=== PATIENT | male | born 1980 | race Caucasian/White ===

== ENCOUNTER 2018-02-05 13:44 | Outpatient (CLI) | payer OTHER | END 2018-02-05 13:45 | disposition home or self-care (01) | LOC: SC 13:44 | PROVIDERS: ATTEND Internal Medicine Pulmonary Disease | DX: G47.33 Obstructive sleep apnea (adult) (pediatric) (principal) | CPT/HCPCS: 99203; 99212 ==

== ENCOUNTER 2018-04-09 10:35 | Outpatient (CLI) | payer OTHER | END 2018-04-09 10:36 | disposition home or self-care (01) | LOC: SC 10:35 | PROVIDERS: ATTEND Nurse Practitioner Family | DX: G47.33 Obstructive sleep apnea (adult) (pediatric) (principal) | CPT/HCPCS: 99212; 99213 ==

== ENCOUNTER 2019-09-28 15:49 | Emergency (ER) | payer OTHER ==
[2019-09-28 15:57] VITALS: BP 137/93
[2019-09-28] MEDS ORDERED: PROPARACAINE 0.5% OPHTH DROPS 15 ML EACHEYE STA (16:02)
--- NOTE | 2019-09-28 16:28 | ED Physician Documentation ---
PD HPI OPHTHO - Stated complaint Stated Complaint: F/O RT EYE - Chief complaint Chief Complaint: Heent - History obtained from History obtained from: Patient, Family - History of Present Illness Timing - onset: Today Timing - duration: Minutes Timing - details: Abrupt onset, Still present Location: Right Quality / character: Throbbing, Sharp Associated symptoms: Redness, Tearing, FB sensation Contributing factors: Other (mowing) Similar symptoms before: Has not had sx before Recently seen: Not recently seen - Additional information Additional information: Previously well 38-year-old male was wearing his glasses and mowing the lawn he felt something get into his eye and now is not able to even hold his eye open he has severe pain and foreign body sensation in the eye not allowing him to open his own eye Review of Systems Constitutional: denies: Fever Eyes: reports: Irritation. denies: Decreased vision, Photophobia Ears: denies: Ear pain Nose: denies: Congestion Throat: denies: Sore throat Respiratory: denies: Cough GI: denies: Vomiting PD PAST MEDICAL HISTORY - Past Surgical History Past Surgical History: No - Present Medications Home Medications: Ambulatory Orders Medication Instructions Recorded Confirmed Loratadine [Claritin] 10 mg PO DAILY 03/20/14 03/20/14 Atorvastatin [Lipitor] 0 mg 09/28/19 Neomycin/Poly/Dex Ophth Drops 1 drops RIGHTEYE QID #1 bottle 09/28/19 [Maxitrol Ophth Drops] - Allergies Allergies/Adverse Reactions: Allergies Allergy/AdvReac Type Severity Reaction Status Date / Time No Known Drug Allergies Allergy Verified 09/28/19 15:57 - Social History Does the pt smoke?: No Smoking Status: Never smoker Does the pt drink ETOH?: Yes Does the pt have substance abuse?: No - Immunizations Immunizations are current?: Yes - POLST Patient has POLST: No PD ED PE NORMAL - Vitals Vital signs reviewed: Yes (hypertensive) - General General: Alert and oriented X 3, No acute distress, Well developed/nourished - HEENT HEENT: Atraumatic, PERRL, EOMI, Other (There is a brown corneal foreign body in the central cornea. 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, No motor deficit, No sensory deficit, Normal speech Eye Opening: Spontaneous Motor: Obeys Commands Verbal: Oriented GCS Score: 15 - Psych Psych: Normal mood, Normal affect Results - Vitals Vitals: Vital Signs - 24 hr 09/28/19 15:55 Temperature 36.7 C Heart Rate 96 Respiratory 18 Rate Blood Pressure 137/93 H O2 Saturation 99 Oxygen O2 Source Room air Procedures - FB removal FB location: Other (eye) FB removal preparation: Local anesthesia-specify (proparicaine) Removal method: Other (#27 needle) FB removal aftercare: No complications, Patient tolerated well, Removed successfully PD MEDICAL DECISION MAKING - ED course Complexity details: re-evaluated patient, considered differential, d/w patient ED course: 38-year-old male with a foreign body in the right eye does well with proparacaine and removal. He has no residual rust ring. Departure - Departure Disposition: 01 Home, Self Care Clinical Impression: Corneal FB (foreign body) Qualifiers: Encounter type: initial encounter Laterality: right Qualified Code(s): T15.01XA - Foreign body in cornea, right eye, initial encounter Condition: Stable Instructions: ED Foreign Body Cornea Follow-Up: LUBA PAULSON DO [Primary Care Provider] - Prescriptions: Neomycin/Poly/Dex Ophth Drops [Maxitrol Ophth Drops] 1 drops RIGHTEYE QID #1 bottle
== END 2019-09-28 16:37 | disposition home or self-care (01) ==
LOC: ED 15:49
DX: T15.91XA Foreign body on external eye, part unspecified, right eye, initial encounter (principal); X58.XXXA Exposure to other specified factors, initial encounter; Y93.H2 Activity, gardening and landscaping
CPT/HCPCS: 65210; 99282; 99284; J3490

== ENCOUNTER 2020-02-29 22:16 | Emergency (ER) | payer OTHER ==
--- NOTE | 2020-02-29 23:09 | ED Physician Documentation ---
PD HPI HEENT - Stated complaint Stated Complaint: LFT EAR PX - Chief complaint Chief Complaint: Heent - History obtained from History obtained from: Patient - History of Present Illness Timing - onset: How many days ago (3) Timing - duration: Days (3) Timing - details: Gradual onset, Still present Location: Left ear Improves: Other (candling today) Associated symptoms: No: Fever, Congestion, Rhinorrhea, Trismus, Unable to swallow, Swollen nodes, Facial swelling, Headache, Cough Similar symptoms before: Diagnosis (cerumen impaction) Recently seen: Not recently seen - Additional information Additional information: Previously well 39-year-old male has a history previously of cerumen impaction and he has cerumen impaction again and has a feeling of fullness and pain in the left ear today he used candling to try to get rid of the wax he had some relief of his pain but the pain is back and still worse than his ever been. He states that this pain is pretty bad and he is wondering if we can do something about it. He denies any cough or congestion sore throat or drainage down the back of his throat. He does not otherwise feel ill. Review of Systems Constitutional: denies: Fever, Chills, Myalgias Eyes: denies: Decreased vision Ears: reports: Loss of hearing, Ear pain. denies: Drainage/discharge Nose: denies: Rhinorrhea / runny nose, Congestion Throat: denies: Sore throat Respiratory: denies: Cough GI: denies: Vomiting PD PAST MEDICAL HISTORY - Past Medical History Past Medical History: Yes Cardiovascular: High cholesterol Respiratory: None Neuro: None Endocrine/Autoimmune: None GI: None : None HEENT: None Psych: None Musculoskeletal: None Derm: None - Past Surgical History Past Surgical History: No - Present Medications Home Medications: Ambulatory Orders Medication Instructions Recorded Confirmed Loratadine [Claritin] 10 mg PO DAILY 03/20/14 03/20/14 Atorvastatin [Lipitor] 0 mg 09/28/19 Neomycin/Poly/Dex Ophth Drops 1 drops RIGHTEYE QID #1 bottle 09/28/19 [Maxitrol Ophth Drops] Azithromycin [Zithromax] 250 mg PO DAILY #6 tablet 02/29/20 - Allergies Allergies/Adverse Reactions: Allergies Allergy/AdvReac Type Severity Reaction Status Date / Time No Known Drug Allergies Allergy Verified 09/28/19 15:57 - Social History Does the pt smoke?: No Smoking Status: Never smoker Does the pt drink ETOH?: Yes Does the pt have substance abuse?: No - Immunizations Immunizations are current?: Yes - POLST Patient has POLST: No PD ED PE NORMAL - Vitals Vital signs reviewed: Yes (Hypertensive) - General General: Alert and oriented X 3, No acute distress, Well developed/nourished - HEENT HEENT: Atraumatic, PERRL, EOMI, Other (There is cerumen impacted by laterally when this is removed the left TM is markedly erythematous especially over the pinpoint of the umbo which is gillespie red. 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 This results in rapid and painless removal of cerumen impaction bilaterally. PD MEDICAL DECISION MAKING - ED course Complexity details: reviewed old records, re-evaluated patient, considered differential, d/w patient ED course: 39-year-old male with cerumen impaction bilaterally and pain in the left ear has the cerumen removed by irrigation successfully and there is evidence of otitis bilaterally. He does not have clinical symptoms of otitis and I suspect this may just be irritation to the TM from the cerumen impaction. I will give the patient [id number] instructions for otitis and a prescription and I have given him instructions on cerumen impaction. He will wait to take antibiotics to see if he develops any symptoms.He has marked relief of his pain at discharge Departure - Departure Disposition: Home, Self Care Clinical Impression: Impacted cerumen of both ears Otitis media Qualifiers: Otitis media type: suppurative Chronicity: acute Laterality: bilateral Recurrence: non-recurrent Spontaneous tympanic membrane rupture: without spontaneous rupture Qualified Code(s): H66.003 - Acute suppurative otitis media without spontaneous rupture of ear drum, bilateral Condition: Stable Instructions: ED Wax Ear Home Removal, ED Ear Infec Wait See Abx Tx Ch Follow-Up: [facility] [Provider Group] Prescriptions: Azithromycin [Zithromax] 250 mg PO DAILY #6 tablet
[2020-02-29 23:24] VITALS: BP 150/102
== END 2020-02-29 23:22 | disposition home or self-care (01) ==
LOC: ED 22:16
DX: H61.23 Impacted cerumen, bilateral (principal); H66.003 Acute suppurative otitis media without spontaneous rupture of ear drum, bilateral
CPT/HCPCS: 99282; 99284

== ENCOUNTER 2020-10-13 15:36 | Outpatient (CLI) | payer OTHER ==
--- NOTE | 2020-10-13 15:57 | SLEEP CARE CONSULTATION ---
Information from patient questionnaire entered by Sadia Nagy. I have reviewed and concur with the information entered by Sadia Nagy. This document represents the service I personally performed and the decisions made by , Ebonie Hernandez ARNP. History of Present Illness Service Date and Time: 10/13/2020 1536 Previous diagnosis: Mild, Obstructive Sleep Apnea-Hypopnea Syndrome AHI: 5.2 (in 2012) Reason for follow up: annual (last seen 04/2018) Equipment type: CPAP Equipment obtained from: [employer] (getting supplies as needed) Mask style: Nasal (over the nose) Mask brand: Respironics ([employer]) Backup mask available: Yes (old mask) Last cushion change: 3-4 weeks ago Prior sleep studies: Yes HPI additional information: ROB TILLEY was diagnosed to have mild, AHI 5.2, obstructive sleep apnea- hypopnea syndrome and returns via Telehealth visit today for CPAP therapy annual follow-up. CPAP Compliance Data - Data Reviewed with Patient Average duration of nightly device use: 8 hr 25 min Compliance rate %: 98.3 (180 days) Current pressure setting (cmH2O): 5-10 Humidity settin Heated hose settin Average residual AHI: 2.6 Average large leak: 4 sec Subjective Patient concerns: denies: aerophagia, mask discomfort, air blowing in eyes, mask leak noise, condensation in mask/hose, nasal congestion, dry mouth, nose, throat, epistaxis, other Observed to snore while using device: No Current pressure setting perceived as: comfortable On therapy, patient: reports: sleeping better, awakening more refreshed, being more awake and alert during the day, more rested overall. denies: drowsiness while driving Initial [place] Sleepiness Scale score: 2 (in 2018) Current [place] Sleepiness Scale score: 0 Allergies and Home Medications Home medication list reviewed: Yes (no changes) Review of Systems Review of systems same as previous: Yes (no changes) Physical Exam Vital signs obtained and entered by: Telehealth visit to reduce exposure during covid pandemic Height: 5 ft 11 in Impression and Plan 1. Obstructive Sleep Apnea-Hypopnea Syndrome, mild, with good treatment compliance and good apnea control. On CPAP therapy, the patient has better sleep quality and is more rested overall. Patient heard about the [employer] recall and called the office, who reviewed with him that he can continue to use his machine as long as there was no particles noted in his machine or having symptoms of upper airway irritation. He states that for 3 days he did not use the device before getting this information were very difficult for him to get a good night sleep. I also advised him to get an inline filter to reduce any particulates coming from device. He states he went on the [employer] website but is not sure if he registered his machine properly. I encouraged him to contact his DME company to make sure he is registered appropriately for this recall. I asked patient about trying to lose weight. 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 He is going to sign up for a gym soon, as well. These are the efforts he is making to be able to lose weight this year. I encouraged him to continue his efforts. Patient's apnea severity and rationale for treatment to reduce apnea, improve sleep quality and reduce cardiovascular and cerebrovascular events was reviewed. * Continue autoCPAP pressure at 5-10 cmH2O * Contact DME to ensure he is registered properly for recall * Notify me if snoring with mask or feeling that the pressure is too much or too little * Continue to try to lose weight * Call this office if any problems using CPAP * Return for follow up in 1 year, or sooner if concerns arise Counseling Topics: Spare mask, Weight loss health impact Visit Type: Telehealth Video Video Type: VSee Patient Location: Home Location of Provider: Office Patient agrees and consents to this telehealth visit type: Yes Patient agrees to have their insurance billed: Yes Time Spent with Patient (minutes): 17 Provider Statement: I spent 100% of the Telehealth Video Call with the patient with greater than 50% spent counseling the patient and coordination of care.
== END 2020-10-13 15:37 | disposition home or self-care (01) ==
LOC: SC 15:36
PROVIDERS: ATTEND Nurse Practitioner Family
DX: G47.33 Obstructive sleep apnea (adult) (pediatric) (principal)
CPT/HCPCS: 99212

== ENCOUNTER 2022-01-06 15:12 | Outpatient (CLI) | payer OTHER ==
[2022-01-06 15:39] VITALS: BP 140/90
--- NOTE | 2022-01-06 15:39 | SLEEP CARE CONSULTATION ---
Information from patient questionnaire entered by Yumiko Espinosa MA. I have reviewed and concur with the information entered by Yumiko Espinosa MA. This document represents the service I personally performed and the decisions made by , Ebonie Hernandez ARNP. History of Present Illness Service Date and Time: 01/06/2022 1512 Previous diagnosis: Mild, Obstructive Sleep Apnea-Hypopnea Syndrome AHI: 5.2 (in 2012) Reason for follow up: annual (last seen 10/2020) Equipment type: CPAP (Dreamstation 2, stratton 02/16/2018) Equipment obtained from: [employer] (getting supplies as needed) Mask style: Nasal (over the nose) Backup mask available: Yes (old mask) Last cushion change: couple days ago Prior sleep studies: Yes HPI additional information: ROB TILLEY was diagnosed to have mild, AHI 5.2, obstructive sleep apnea- hypopnea syndrome and returned today for CPAP therapy annual follow-up. Sleep Study - Results Prior sleep studies: Yes CPAP Compliance Data - Data Reviewed with Patient Average duration of nightly device use: 8 hours 34 minutes Compliance rate %: 100 (90/90 days used) Current pressure setting (cmH2O): 5-10 Average residual AHI: 2.5 Central apnea: 0.1 Obstructive apnea: 0.7 Hypopnea: 1.7 Average large leak: 0.6 L/min Subjective Patient concerns: denies: aerophagia, mask discomfort, air blowing in eyes, mask leak noise, condensation in mask/hose, nasal congestion, dry mouth, nose, throat, epistaxis Observed to snore while using device: No Current pressure setting perceived as: comfortable On therapy, patient: reports: sleeping better, awakening more refreshed, being more awake and alert during the day, more rested overall. denies: drowsiness while driving Initial [place] Sleepiness Scale score: 2 (in 2018) Current [place] Sleepiness Scale score: 1 Allergies and Home Medications Drug allergies reviewed: Yes (NKDA) Home medication list reviewed: Yes (no changes) Allergy and home medication list: Allergies No Known Drug Allergies Allergy (Verified 09/28/19 15:57) Review of Systems Review of systems same as previous: Yes (no changes) Physical Exam Vital signs obtained and entered by: JEFF MILLER Blood Pressure: 140/90 (left arm) Cuff size: long Heart Rate: 87 O2 Saturation: 97 Height: 5 ft 11 in Weight: 249 lb Body Mass Index: 34.7 BMI Classification: Obese Impression and Plan 1. Obstructive Sleep Apnea-Hypopnea Syndrome, mild, with excellent treatment compliance and good apnea control. On CPAP therapy, the patient has better sleep quality and is more rested overall. Patient has significant improvement of their sleep apnea and are satisfied with current CPAP therapy. Patient denies problems with oral dryness, nasal congestion, epistaxis, skin irritation or aerophagia. Patient's apnea severity and rationale for treatment to reduce apnea, improve sleep quality and reduce cardiovascular and cerebrovascular events was reviewed. 2. Obesity, unspecified. Currently patients BMI is 34.7. Obesity increases the risk of apnea, CPAP pressure requirements and overall health risks especially cardiovascular and diabetes. Thus patient is advised to lose weight. Weight loss can be done with reducing portion size, reducing refined foods and balancing content with vegetables, fruit and whole grain foods. In addition, patient encouraged to get regular exercise. The patient's CPAP pressure range should accommodate some weight loss. Symptoms to report for additional pressure adjustment discussed. * Continue auto CPAP pressure at 5-10 cmH2O * Update supplies * Notify me if snoring with mask or feeling that the pressure is too much or too little * Attempt to lose weight * Call this office if any problems using CPAP * Return for follow up in 1 year, or sooner if concerns arise Counseling Topics: Weight loss health impact Visit Type: In Office Time Spent with Patient (minutes): 11 Provider Statement: I spent 100% of the Face to Face Visit with the patient with greater than 50% spent counseling the patient and coordination of care.
== END 2022-01-06 15:13 | disposition home or self-care (01) ==
LOC: SC 15:12
PROVIDERS: ATTEND Nurse Practitioner Family
DX: G47.33 Obstructive sleep apnea (adult) (pediatric) (principal); E66.9 Obesity, unspecified; Z68.34 Body mass index [BMI] 34.0-34.9, adult
CPT/HCPCS: 99212

== ENCOUNTER 2022-10-05 20:07 | Emergency (ER) | payer OTHER ==
[2022-10-05 20:17] VITALS: BP 157/99
[2022-10-05] MEDS ORDERED: DEXAMETHASONE 10 MG/ML VIAL PO ONE (20:23)
[2022-10-05] MEDS ORDERED: CHERRY SYRUP 10 ML UDC PO ONE (20:23)
--- NOTE | 2022-10-05 20:24 | ED Physician Documentation ---
PD HPI HEENT - Stated complaint Stated Complaint: SORE THROAT - Chief complaint Chief Complaint: Heent - History obtained from History obtained from: Patient (2 days of sore throat not associate with fevers or cough. Hurts to swallow. No comorbidities.) PD PAST MEDICAL HISTORY - Past Medical History Cardiovascular: High cholesterol Respiratory: None Neuro: None Endocrine/Autoimmune: None GI: None : None HEENT: None Psych: None Musculoskeletal: None Derm: None - Past Surgical History Past Surgical History: No - Present Medications Home Medications: Ambulatory Orders Medication Instructions Recorded Confirmed Loratadine [Claritin] 10 mg PO DAILY 03/20/14 03/20/14 Atorvastatin [Lipitor] 10 mg PO DAILY 09/28/19 - Allergies Allergies/Adverse Reactions: Allergies Allergy/AdvReac Type Severity Reaction Status Date / Time No Known Drug Allergies Allergy Verified 10/05/22 20:17 - Social History Does the pt smoke?: No Smoking Status: Never smoker Does the pt drink ETOH?: Yes Does the pt have substance abuse?: No - Immunizations Immunizations are current?: Yes - POLST Patient has POLST: No PD ED PE NORMAL - Vitals Vital signs reviewed: Yes - General General: Alert and oriented X 3, No acute distress - HEENT HEENT: Other (Red tonsils with exudates, normal phonation, no trismus) - Neck Neck: Supple, no meningeal sign, No bony TTP, No adenopathy - Neuro Neuro: Alert and oriented X 3 Results - Vitals Vitals: Vital Signs - 24 hr 10/05/22 20:09 Temperature 36.6 C Heart Rate 113 H Respiratory 18 Rate Blood Pressure 157/99 H O2 Saturation 99 Oxygen O2 Source Room air - Labs Labs: Laboratory Tests 10/05/22 20:13 Group A Strep Rapid Negative Departure - Departure Disposition: Home, Self Care Clinical Impression: Viral pharyngitis Condition: Good Record reviewed to determine appropriate education?: Yes Instructions: ED Pharyngitis Viral Report Pending Comments: We are culturing your throat and if the bacterial isolate is identified we will call you in a couple of days, but at this point it does not seem like it is bacterial. Tylenol and/or ibuprofen as needed for pain. He also received for hydrocodone tonight and a dose of steroids which should help with the inflammation and swelling. Return if worse. Follow-up with your doctor on Monday if not better.
[2022-10-05 20:31] LABS: RAPID STREP SCREEN Negative (Negative)
[2022-10-05] MEDS ORDERED: HYDROcod/ACET 5/325 Prepack 4 PO STA (21:14)
== END 2022-10-05 21:28 | disposition home or self-care (01) ==
LOC: ED 20:07
DX: J02.8 Acute pharyngitis due to other specified organisms (principal)
CPT/HCPCS: 87070; 87430; 99283; A9270

== ENCOUNTER 2023-12-12 11:07 | Outpatient (CLI) | payer OTHER ==
--- NOTE | 2023-12-12 11:55 | Sleep Patient Instructions ---
Sleep Center Visit Summary - Patient Visit Information Reason for Visit: Annual follow-up - Patient Instructions Additional Instructions: You will continue with CPAP therapy with pressure set at 5-10 cmH2O. A supply prescription will be updated with your DME supplier. We encourage you to continue to try to lose weight. Please follow up with the sleep care office in 1 year. - Clinic Information Contact: [facility] [address] [place] [address] [email or web address] T: [phone]
--- NOTE | 2023-12-12 11:59 | SLEEP CARE CONSULTATION ---
Information from patient questionnaire entered by Modesto Kumari. I have reviewed and concur with the information entered by Modesto Kumari. This document represents the service I personally performed and the decisions made by , Ebonie Hernandez ARNP. History of Present Illness Service Date and Time: 12/12/2023 1107 Previous diagnosis: Mild, Obstructive Sleep Apnea-Hypopnea Syndrome AHI: 5.2 (in 2012) Reason for follow up: annual (LAST SEEN 12/2022) Equipment type: CPAP (Dreamstation 2, stratton 02/16/2018) Equipment obtained from: [employer] (getting supplies as needed) Mask style: Nasal (over the nose; XL cushion) Backup mask available: Yes (old mask) Last cushion change: month Prior sleep studies: Yes HPI additional information: ROB TILLEY was diagnosed to have mild, AHI 5.2, obstructive sleep apnea- hypopnea syndrome and returned today for CPAP therapy annual follow-up. Sleep Study - Results Prior sleep studies: Yes CPAP Compliance Data - Data Reviewed with Patient Average duration of nightly device use: 8 HRS 30 MINS 17 SECS Compliance rate %: 100 (06/13/23-12/09/23; 180/180 days used) Current pressure setting (cmH2O): 5-10 Average residual AHI: 2.1 Central apnea: 0.1 Obstructive apnea: 0.6 Hypopnea: 1.4 Average large leak: 1 secs Subjective Patient concerns: denies: aerophagia, mask discomfort, air blowing in eyes, mask leak noise, condensation in mask/hose, nasal congestion, dry mouth, nose, throat, epistaxis Observed to snore while using device: No Current pressure setting perceived as: comfortable On therapy, patient: reports: sleeping better, awakening more refreshed, being more awake and alert during the day, more rested overall. denies: drowsiness while driving Initial [place] Sleepiness Scale score: 2 (in 2018) Current [place] Sleepiness Scale score: 0 (12/12/23) Allergies and Home Medications Known drug allergies: No Drug allergies reviewed: Yes Home medication list reviewed: Yes (no changes) Allergy and home medication list: Allergies No Known Drug Allergies Allergy (Verified 12/12/23 11:12) Review of Systems Review of systems same as previous: No (COLOLNOSCOPY ENDOSCOPY) Physical Exam Vital signs obtained and entered by: MODESTO Jacobs MA Blood Pressure: 152/95 (RIGHT ARM) Cuff size: regular Heart Rate: 86 O2 Saturation: 97 Height: 5 ft 11 in Weight: 261 lb 9.6 oz Body Mass Index: 36.4 BMI Classification: Obese Impression and Plan 1. Obstructive Sleep Apnea-Hypopnea Syndrome, mild, with good treatment compliance and good apnea control. On CPAP therapy, the patient has better sleep quality and is more rested overall. He has significant improvement of his sleep apnea and is very satisfied with CPAP therapy. 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 Patient's apnea severity and rationale for treatment to reduce apnea, improve sleep quality and reduce cardiovascular and cerebrovascular events was reviewed. 2. Obesity, unspecified. Currently patients BMI is 36.4. Obesity increases the risk of apnea, CPAP pressure requirements and overall health risks especially cardiovascular and diabetes. Thus patient is advised to lose weight. * Continue auto CPAP pressure at 5-10 cmH2O * Update supply prescription. * Notify me if snoring with mask or feeling that the pressure is too much or too little * Attempt to lose weight * Call this office if any problems using CPAP * Return for follow up in 12 months, or sooner if concerns arise Continue with device pressure at (cmH2O): 5-10 Counseling Topics: Spare mask, Weight loss health impact Prescriptions: Device supplies Follow up with Sleep Care in: 1 year Visit Type: In Office Time Spent with Patient (minutes): 20 Provider Statement: I spent 100% of the Face to Face Visit with the patient with greater than 50% spent counseling the patient and coordination of care.
[2023-12-12 12:00] VITALS: BP 152/95; O2SAT 97
== END 2023-12-12 11:08 | disposition home or self-care (01) ==
LOC: SC 11:07
PROVIDERS: ATTEND Nurse Practitioner Family
DX: G47.33 Obstructive sleep apnea (adult) (pediatric) (principal); E66.9 Obesity, unspecified; Z68.36 Body mass index [BMI] 36.0-36.9, adult
CPT/HCPCS: 99212; 99213